=== PATIENT | male | born 1960 | race Caucasian/White ===

== ENCOUNTER → 2017-11-28 16:22 | Outpatient (CLI) | payer BC, SELFPAY ==
[2017-11-28 20:02] LABS: Chlamydia Trachomatis by PCR Negative (Negative); Neisserai gonorrhoeae by PCR Negative (Negative); Probe Check PASS; Sample Adequacy Control PASS; Specimen Processing Control PASS
[2017-11-29 10:59] LABS: HIV - WCH Non-Reactive (Nonreactive)
[2017-11-30 17:07] LABS: HEPATITIS B SURFACE AG Negative (Negative); Hep C Antibodies <0.1 s/co ratio (0.0-0.9)
[2017-12-01 04:35] LABS: Rapid Plasmin Reagin (RPR) NONREACTIVE (NONREACTIVE)
== END ==
PROVIDERS: Family Provider Family Medicine; PCP Family Medicine; Visit Provider Family Medicine
DX: Z20.9 Contact with and (suspected) exposure to unspecified communicable disease (principal)
CPT/HCPCS: 36415; 86592; 86703; 86803; 87340; 87491; 87591

== ENCOUNTER 2021-03-12 21:10 | Emergency (ER) | payer BC, SELFPAY ==
[2021-03-12 21:11] VITALS: BP 132/93; PULSE 86; RESP 19; TEMP 36.2; O2SAT 89; BMI 27.3
[2021-03-12 21:14] VITALS: O2SAT 96
--- NOTE | 2021-03-12 22:03 | EKG12_ITS ---
Test Reason : CP Blood Pressure : / mmHG Vent. Rate : 077 BPM Atrial Rate : 077 BPM P-R Int : 142 ms QRS Dur : 098 ms QT Int : 370 ms P-R-T Axes : 051 036 042 degrees QTc Int : 418 ms Normal sinus rhythm Normal ECG Confirmed by AMBAR FRANCISCO, MIRYAM ([id number]), assignment editor HALEY HARO ([id number]) on 03/15/2021 10:50:18 AM Referred By: Confirmed By:MIRYAM VILLALTA MD
--- NOTE | 2021-03-12 22:04 | ED.VIS.CHEST ---
HPI History of Present Illness Chief Complaint: Chest Pain Informant: patient and EMS Onset/Context/Timing Onset: Today Activity at onset: sudden (worsening [employer]) and gradual (earlier today) Timing: Continuous Quality: Positive for Aching and Sharp (now) Location: Right Chest (without radiation) Current Severity: Moderate Maximum Severity: Severe Worsened By: Breathing; Not Worsened By Exertion, Movement of Arm, Movement of Torso, Eating and Palpation Relieved By: Narcotics (fentanyl given by EMS, breathing w/ short tidal volumes) Associated Symptoms: Negative for Nausea, Vomiting, Diaphoresis, Dyspnea, Cough, Fever, Lightheadedness and Palpitations Narrative Narrative: Patient with pleuritic right-sided chest discomfort without radiation. States he felt like earlier today somebody punched him in his right lower ribs, and it was sore all day. Then while he was sitting on the couch at rest just prior to arrival, the pain suddenly became much worse without any obvious etiology. He denies any history of DVT or PE. Denies any association with food. No nausea, vomiting, diarrhea or other GI symptoms. No recent cough even in the past month. No history of Covid, he was vaccinated several months ago and fully so. He denies any leg pain or swelling, no recent travel, immobilization, travel, surgery. Prior Similar Symptoms: No Recent Illness/Hospitalization: No CVD Risk Factors: Negative for Hypertension, Diabetes, Hypercholesterolemia, Family History 1' </=55 and Smoking PE Risk Factors: Negative for Recent Travel/Surgery, Recent Immobilization, Prior DVT or PE, Cancer and OCP + Smoking + >/=35 [facility] Medical History Anxiety Home Medications citalopram 20 mg PO DAILY 05/08/13 [History Last Taken Unknown] apixaban [Eliquis] 5 mg PO BID #74 tab 03/13/21 [Rx Last Taken Unknown] Allergy/AdvReac Type Severity Reaction Status Date / Time No Known Allergies Allergy Verified 03/12/21 21:11 Social History Smoking Status: Never smoker ROS ROS ED Constitutional Constitutional ED: Denies chills or fever(s) Eyes Eyes: Denies change in vision or diplopia ENT ENT ED: Denies rhinorrhea or sore throat Cardiovascular Cardiovascular: Reports chest pain; Denies palpitations Respiratory/Chest Respiratory/Chest: Denies cough or dyspnea Gastrointestinal Gastrointestinal: Denies abdominal pain, diarrhea, nausea or vomiting Genitourinary Genitourinary ED: Denies dysuria or hematuria Musculoskeletal Musculoskeletal: Denies back pain or neck pain Integumentary Denies abscess or rash Neurologic Neurologic: Denies headache(s), paresthesias or weakness Psychiatric Psychiatric: Denies anxiety or suicidal thoughts EXAM Physical Exam Const Vital Signs: 03/12/21 21:11 03/12/21 21:14 03/12/21 21:16 Temperature 97.2 F L Temperature Source Temporal Pulse Rate 86 Respiratory Rate 19 H Respiratory Effort Normal Non-Labored Blood Pressure 132/93 H Blood Pressure Mean 106 Pulse Ox 89 96 Oxygen Delivery Method Room Air Nasal Cannula Oxygen Flow Rate (L/min) 03/12/21 22:06 03/12/21 23:19 Temperature Temperature Source Pulse Rate 89 Respiratory Rate 18 Respiratory Effort Blood Pressure 125/86 H Blood Pressure Mean 99 Pulse Ox 95 Oxygen Delivery Method Nasal Cannula Nasal Cannula Oxygen Flow Rate (L/min) 2 2 Positive well nourished and well developed General Appearance ED: well developed and NAD HEENT Reports moist mucous membranes normocephalic and atraumatic Eyes PERRL and EOMs intact bilaterally Neck full ROM and supple Chest Wall inspection of chest normal Chest: Negative for tenderness Resp normal respiratory effort and clear to auscultation bilaterally Cardio regular rate, regular rhythm and no murmurs Rate: Negative for tachycardic GI non-tender and non-distended Auscultation: normoactive bowel sounds Palpation: soft Back/Spine no CVA tenderness General Back: other FROM Extremity normal to inspection and no calf tenderness General Extremety ED: Negative for edema, pulses abnormal or tenderness General Extremity: Negative for edema or pulses abnormal Neuro oriented x3, CN's II-XII intact bilaterally and no sensory deficits noted Sensorium / Orientation: awake and alert Motor Exam: strength 5/5 throughout Skin no rashes or lesions noted and no wounds Heart Score History: Slightly/Non-Suspicious ECG: Normal Age: >45 - <65 years Risk Factors: No Risk Factors Troponin: </= Normal Limit Score: 1 MDM MDM MDM Narrative Medical decision making narrative: Main 2 items on the differential include pleurisy and pulmonary embolus although he has no risk factors for the latter, the story was concerning. D-dimer was elevated so CT angiography was performed and does show right lower lobe pulmonary emboli which is likely causing his symptoms. He does not have any signs of right heart strain, no tachycardia nor is he on any AV eloy blockers to suppress it, his troponin is negative and his EKG does show a borderline S1Q3T3 pattern but is otherwise unremarkable without any signs of ST segment deviation, ectopy, or tachycardia. The patient is feeling well and speaking full sentences. He is stable for outpatient treatment. He was given an injection of Lovenox since it is nighttime, and he can start Eliquis in the morning. We discussed follow-up and reasons to return. Lab Data Attestation: I reviewed the patient's lab results. Labs: Laboratory Results - last 24 hr 03/12/21 03/12/21 03/12/21 21:30 21:30 21:30 WBC 12.4 H RBC 4.55 L Hgb 13.8 Hct 40.6 MCV 89.2 MCH 30.3 MCHC 34.0 RDW Std Deviation 40.9 RDW Coeff of Digna 12.5 Plt Count 365 MPV 9.0 Immature Gran % (Auto) 0.600 Neut % (Auto) 65.7 Lymph % (Auto) 19.6 [place] % (Auto) 11.0 H Eos % (Auto) 2.8 Baso % (Auto) 0.3 Absolute Neuts (auto) 8.1 H Absolute Lymphs (auto) 2.43 Nucleated RBC % 0 D-Dimer Quant (PE/DVT) 1.20 H* Sodium 137 Potassium 3.5 Chloride 105 Carbon Dioxide 24.0 Anion Gap 8 BUN 14 Creatinine 0.78 Estim Creat Clear Calc 103.99 Est GFR (MDRD) Af Amer 130 Est GFR (MDRD) Non-Af 107 BUN/Creatinine Ratio 17.9 Glucose 107 H Calcium 8.7 Troponin I High Sens 6 Radiography Diagnostic Testing: Clinical Impression(s) from Imaging Studies Chest X-Ray 03/12/21 22:44 IMPRESSION: Degenerative changes, as described above. No demonstrated acute cardiopulmonary process. Electronically Signed: Jovani Fabian DO at 23:03 EDT Tel [phone], Service support , Chest CTA 03/12/21 22:51 IMPRESSION: 1. Bilateral lower lobe and right middle lobe segmental pulmonary emboli. 2. No evidence for right heart strain. 3. Bilateral multifocal pneumonia. N.B. : The above Results were Read Back by Chaya Taylor MD to Jerzy Hurtado MD, and understanding confirmed on 03/13/2021 00:02:31 (ET). Electronically Signed: Chaya Taylor MD at 0:11 EDT , Service support , ADDENDUM: 03/13/21 0018 IMPRESSION: 1. Bilateral lower lobe and right middle lobe segmental pulmonary emboli. 2. No evidence for right heart strain. 3. Bilateral multifocal pneumonia. N.B. : The above Results were Read Back by Chaya Taylor MD to Jerzy Hurtado MD, and understanding confirmed on 03/13/2021 00:02:31 (ET). Electronically Signed: Chaya Taylor MD at 0:11 EDT , Service support , EKG Initial EKG: Attestation: I personally reviewed and interpreted this EKG as follows: Interpretation: Sinus Rhythm (77) and No Acute Injury Pattern Comments: Normal EKG. S1Q3T3 pattern borderline (flattened T's in III, not inverted). Prior: No Prior Discharge Plan Triage Chief Complaint: Chest Pain ED Provider: Jerzy Hurtado Dx/Rx/DC Orders Clinical Impression: Pulmonary embolism on right Instructions: Embolism Pulmonary Dc Prescriptions: New Eliquis 5 MG tablet 5 mg PO BID Qty: 74 RF: 0 No Action citalopram 20 MG tablet 20 mg PO DAILY RF: 0 Primary Care Provider: Alfa Ceballos Referrals: Alfa Ceballos MD [Primary Care Provider] - 1-2 Weeks Disposition Disposition: Home, Self Care
[2021-03-12] MEDS: Ketorolac 15 MG/ML Vial IV (22:16)
[2021-03-12 22:18] LABS: Absolute Lymphocyte Count 2.43 X10^3/uL (0.83-4.51); Absolute Neutrophil Count 8.1 X10^3/uL (2.0-7.7); Basophil# 0.04 X10^3/uL; Basophil% 0.3 % (0-1); Eosinophil# 0.35 X10^3/uL; Eosinophils% 2.8 % (0-5); Hematocrit 40.6 % (40-54); Hemoglobin 13.8 g/dL (13.0-16.5); Lymphocyte # 2.43 X10^3/ul (0.83-4.51); Lymphocyte % 19.6 % (19-41); Mean Corpuscular Hgb 30.3 pg (27.0-32.0); Mean Corpuscular Volume 89.2 fL (80-94); Monocyte# 1.36 X10^3/uL; NRBC Flagged by Analyzer 0 % (0-5); Neutrophil # 8.13 X10^3/uL (2.7-7.7); Neutrophil % 65.7 % (47-70); Platelet Count 365 K/mm3 (150-450); RBC Distribution Width CV 12.5 % (11.6-14.6); RBC Distribution Width SD 40.9 fl (35.1-43.9); Red Blood Count 4.55 M/mm3 (4.6-6.2); White Blood Count 12.4 K/mm3 (4.4-11.0)
[2021-03-12 22:32] LABS: Anion Gap 8 (5-15); BUN 14 mg/dL (7-18); BUN/Creat Ratio 17.9 RATIO (10-20); Calcium,Total 8.7 mg/dL (8.5-10.1); Chloride 105 mmol/L (98-107); Creatinine, Serum 0.78 mg/dL (0.70-1.30); EST Glomerular Filtration Rate 107 mL/min (>60); Est Glom Filt Rate - Afr Amer 130 mL/min (>60); Estimated Creatinine Clearance 103.99 ml/min; Glucose 107 mg/dL (74-106); Potassium 3.5 mmol/L (3.5-5.1); Sodium Level 137 mmol/L (136-145); Troponin-I HS 6 pg/mL (3.0-78.0)
--- NOTE | 2021-03-12 22:44 | RAD_ITS ---
STUDY: X-RAY CHEST REASON FOR EXAM: Male, 60 years old. Right chest pain. TECHNIQUE: Single AP portable view of the chest. COMPARISON: None. FINDINGS: The lungs are clear and expanded. There is no demonstrated pleural abnormality. Normal size heart. Normal mediastinum and naresh. Normal visualized pulmonary arteries. Normal visualized aortic arch and descending thoracic aorta. There are diffuse degenerative changes of the visualized thoracic spine. Normal visualized ribs, clavicles, and shoulders. There is no demonstrated abnormality of the visualized soft tissue structures of the upper abdomen. RAD/Chest PA and Lateral IMPRESSION: Degenerative changes, as described above. No demonstrated acute cardiopulmonary process. Electronically Signed: Jovani Fabian DO at 23:03 EDT Tel [phone], Service support ,
--- NOTE | 2021-03-12 22:51 | CT_ITS ---
STUDY: CTA CHEST REASON FOR EXAM: Male, 60 years old. R chest pain, elevated d-dimer RADIATION DOSAGE (If Supplied By Facility): CTDIvol = ( 12.47 ) mGy, DLP = ( 438.80 ) mGycm TECHNIQUE: The examination was performed with the intravenous administration of 100 of mL Isovue-300. Post-processing of the angiographic images was performed, with multiplanar reformation and 3D reconstruction. Individualized dose optimization techniques were used for this CT. COMPARISON: None. FINDINGS: Normal enhancement of the main pulmonary artery and right and left pulmonary arteries. There is limited enhancement of the bilateral peripheral pulmonary arteries. There are segmental pulmonary emboli to the right middle lobe and right lower lobe. There are also probable segmental emboli to the left lower lobe. There is atherosclerotic tortuosity of the aortic arch and descending thoracic aorta. There is no demonstrated aortic dissection. Normal heart and pericardium. There are calcifications of the coronary arteries. Normal mediastinum. Normal hilar regions. Normal visualized trachea and bronchi. The lungs are well expanded. There is bilateral lower lobe airspace disease located primarily in the posterior segments of both lower lobes. There is also heterogeneous ground glass attenuation in the lingula. This suggests the possibility of multifocal pneumonia. Normal pleura. Normal chest wall structures. There are degenerative changes of thoracic spine. Normal visualized upper abdomen. CT/CTA Chest W/WO Contrast IMPRESSION: 1. Bilateral lower lobe and right middle lobe segmental pulmonary emboli. 2. No evidence for right heart strain. 3. Bilateral multifocal pneumonia. N.B. : The above Results were Read Back by Chaya Taylor MD to Jerzy Hurtado MD, and understanding confirmed on 03/13/2021 00:02:31 (ET). Electronically Signed: Chaya Taylor MD at 0:11 EDT , Service support ,
[2021-03-12 23:19] VITALS: BP 125/86; PULSE 89; RESP 18; O2SAT 95
[2021-03-13] MEDS: Enoxaparin 100 MG/ML Syringe 86 MG SC (00:53)
[2021-03-13 01:00] VITALS: RESP 16
== END 2021-03-13 01:00 | disposition home or self-care (01) ==
PROVIDERS: Emergency Provider Emergency Medicine; PCP Family Medicine
DX: I26.99 Other pulmonary embolism without acute cor pulmonale (principal); F41.9 Anxiety disorder, unspecified; Z79.899 Other long term (current) drug therapy
CPT/HCPCS: 71046; 71275; 80048; 84484; 85025; 85379; 93005; 96374; 96375; 99285; Q9967; A4216

== ENCOUNTER → 2021-03-17 15:01 | Outpatient (CLI) | payer BC, SELFPAY | PROVIDERS: PCP Family Medicine; Visit Provider Family Medicine | DX: Z20.828 Contact with and (suspected) exposure to other viral communicable diseases (principal); J18.9 Pneumonia, unspecified organism | CPT/HCPCS: 87635; U0005; U0003 ==

== ENCOUNTER → 2022-07-08 | Outpatient (CLI) | payer BC, SELFPAY ==
--- NOTE | 2022-07-08 13:54 | VDLE_ITS ---
Reason For Study: Pain RIGHT LEFT CFV is compressible, spontaneous, phasic, GSV is normal. competent and demonstrates normal CFV is compressible, spontaneous, phasic, augmentation. competent, and demonstrates normal Procedure augmentation. This is a venous duplex using B-mode, color FV is compressible, spontaneous, phasic, flow and spectral Doppler. competent and demonstrates normal Exam performed in department. augmentation. A preliminary report was called and/or faxed POP V is compressible, spontaneous, phasic, to [place]. competent and demonstrates normal augmentation. T/P Trunk is compressible. PTV is compressible. LT PerV is compressible. VL/Venous Duplex US, Unilateral Interpretation Summary Deep veins of the left lower extremity are patent and compressible segmentally. There is no evidence of left lower extremity deep vein thrombosis. The left great saphenous vein je ears patent and compressible segmentally. Ordering Physician: Wei Means Referring Physician: Wei Means Performed By: Amalia Mathews RVT
== END | disposition home or self-care (01) ==
LOC: CVS 13:53
PROVIDERS: PCP Nurse Practitioner Family; Visit Provider Nurse Practitioner Family
DX: M79.662 Pain in left lower leg (principal)
CPT/HCPCS: 93971

== ENCOUNTER → 2022-07-15 | Outpatient (CLI) | payer BC, SELFPAY ==
[2022-07-15 12:25] LABS: Absolute Lymphocyte Count 1.81 X10^3/uL (0.83-4.51); Absolute Neutrophil Count 4.2 X10^3/uL (2.0-7.7); Basophil# 0.03 X10^3/uL; Basophil% 0.4 % (0-1); Eosinophil# 0.19 X10^3/uL; Eosinophils% 2.7 % (0-5); Hematocrit 43.7 % (40-54); Hemoglobin 15.1 g/dL (13.0-16.5); Lymphocyte # 1.81 X10^3/ul (0.83-4.51); Lymphocyte % 25.7 % (19-41); Mean Corp Hgb Conc 34.6 g/dL (32-36); Mean Corpuscular Hgb 30.3 pg (27.0-32.0); Mean Corpuscular Volume 87.8 fL (80-94); Mean Platelet Vol. 9.7 fl (6.2-12.0); Monocyte# 0.78 X10^3/uL; Monocyte% 11.1 % (0-10); NRBC Flagged by Analyzer 0 % (0-5); Neutrophil # 4.21 X10^3/uL (2.7-7.7); Neutrophil % 59.7 % (47-70); Platelet Count 346 K/mm3 (150-450); RBC Distribution Width CV 12.5 % (11.6-14.6); RBC Distribution Width SD 40.3 fl (35.1-43.9); Red Blood Count 4.98 M/mm3 (4.6-6.2); White Blood Count 7.1 K/mm3 (4.4-11.0)
[2022-07-15 13:04] LABS: AST(SGOT) 32 U/L (15-37); Alanine Aminotransfer ALT/SGPT 55 U/L (16-61); Albumin, Serum 3.8 g/dL (3.2-5.0); Alkaline Phosphatase 98 U/L (45-117); Anion Gap 10 (5-15); BUN 18 mg/dL (7-18); BUN/Creat Ratio 20.9 RATIO (10-20); Chloride 102 mmol/L (98-107); Cholesterol 229 mg/dL (200); Creatinine, Serum 0.86 mg/dL (0.70-1.30); EST Glomerular Filtration Rate 96 mL/min (>60); Est Glom Filt Rate - Afr Amer 116 mL/min (>60); Globulin 3.8 g/dL (2.2-4.2); Glucose 104 mg/dL (74-106); High Density Lipoprotein 50 mg/dL; Potassium 4.1 mmol/L (3.5-5.1); Protein, Total 7.6 g/dL (6.4-8.2); Sodium Level 136 mmol/L (136-145); Thyroid Stim Hormone (TSH) 1.87 uIU/mL (0.358-3.74); Triglycerides 110 mg/dL; Very Low Density Lipoprotein 22 mg/dL (5-40)
== END | disposition home or self-care (01) ==
LOC: BIMLAB 08:12
PROVIDERS: PCP Nurse Practitioner Family; Referring Provider Nurse Practitioner Family; Visit Provider Nurse Practitioner Family
DX: I10 Essential (primary) hypertension (principal); E78.5 Hyperlipidemia, unspecified; R73.03 Prediabetes
CPT/HCPCS: 36415; 80053; 80061; 84443; 85025

== ENCOUNTER → 2022-08-11 | Outpatient (CLI) | payer BC, SELFPAY ==
--- NOTE | 2022-08-11 17:02 | RAD_ITS ---
INDICATION: CHRONIC NECK PAIN/crane EXAMINATION/TECHNIQUE: X-RAY - XR Spine Cervical 4 or 5 Views COMPARISON: None. FINDINGS: VERTEBRAE: Vertebral body height is maintained, there is mild degenerative retrolisthesis of C5 on C6. Marginal osteophyte formation is noted. No evidence of fracture or destructive bony process. Normal appearance of the odontoid process prevertebral soft tissue planes in alignment of the craniocervical junction. DISCS: Disc space narrowing most notable at C5-6 lesser extent C6-7. Retrolisthesis is noted at C5-6. Marginal osteophyte formation is present. Foraminal narrowing is noted at multiple levels contributed by facet and uncovertebral joint hypertrophic changes most notable on the RIGHT at C5-6 and C6-7. NECK SOFT TISSUES: No prevertebral soft tissue widening. LUNG APICES: Clear. RAD/Cerv Spine 4 or 5 Views IMPRESSION: 1. Degenerative retrolisthesis of C5 on C6. 2. No evidence of fracture, acute malalignment or destructive bony process. 3. Cervical spondylosis, disc space narrowing marginal osteophyte formation and multilevel foraminal narrowing contributed by facet and uncovertebral joint hypertrophic changes as detailed. Electronically Signed: Yung Santiago MD at 19:58 EDT ,
== END | disposition home or self-care (01) ==
LOC: MTRAD 17:02
PROVIDERS: PCP Nurse Practitioner Family; Referring Provider Nurse Practitioner Family; Visit Provider Nurse Practitioner Family
DX: G44.86 Cervicogenic headache (principal); M54.2 Cervicalgia
CPT/HCPCS: 72050

== ENCOUNTER → 2024-06-13 | Outpatient (CLI) | payer BC, SELFPAY ==
[2024-06-13 17:07] LABS: Absolute Neutrophil Count 5.1 X10^3/uL (2.0-7.7); Basophil# 0.04 X10^3/uL; Basophil% 0.4 % (0-1); Eosinophil# 0.38 X10^3/uL; Eosinophils% 4.1 % (0-5); Hematocrit 43.9 % (40-54); Hemoglobin 14.7 g/dL (13.0-16.5); Mean Corp Hgb Conc 33.5 g/dL (32-36); Mean Corpuscular Hgb 29.4 pg (27.0-32.0); Mean Corpuscular Volume 87.8 fL (80-94); Monocyte# 1.11 X10^3/uL; Monocyte% 11.9 % (0-10); NRBC Flagged by Analyzer 0 % (0-5); Neutrophil # 5.13 X10^3/uL (2.7-7.7); Neutrophil % 55.3 % (47-70); Platelet Count 383 K/mm3 (150-450); RBC Distribution Width CV 12.9 % (11.6-14.6); White Blood Count 9.3 K/mm3 (4.4-11.0)
[2024-06-13 17:21] LABS: Hemoglobin A1c 4.7 % (3.8-5.6)
[2024-06-13 17:33] LABS: ALB/GLOB Ratio 0.9 RATIO (0.9-2.4); AST(SGOT) 27 U/L (15-37); Alanine Aminotransfer ALT/SGPT 53 U/L (16-61); Albumin, Serum 3.9 g/dL (3.2-5.0); Alkaline Phosphatase 95 U/L (45-117); Anion Gap 7 (5-15); BUN 17 mg/dL (7-18); BUN/Creat Ratio 19.7 RATIO (10-20); Chloride 103 mmol/L (98-107); Cholesterol 232 mg/dL (200); Creatinine, Serum 0.86 mg/dL (0.70-1.30); EST Glomerular Filtration Rate 95 mL/min (>60); Est Glom Filt Rate - Afr Amer 115 mL/min (>60); Globulin 4.4 g/dL (2.2-4.2); Glucose 91 mg/dL (74-106); High Density Lipoprotein 53 mg/dL; Potassium 3.9 mmol/L (3.5-5.1); Protein, Total 8.3 g/dL (6.4-8.2); Sodium Level 136 mmol/L (136-145); Triglycerides 266 mg/dL; Very Low Density Lipoprotein 53 mg/dL (5-40)
== END | disposition home or self-care (01) ==
LOC: VSLAB 16:00
PROVIDERS: PCP Nurse Practitioner Family
DX: I10 Essential (primary) hypertension (principal); Z13.1 Encounter for screening for diabetes mellitus; Z13.220 Encounter for screening for lipoid disorders
CPT/HCPCS: 36415; 80053; 80061; 83036; 84443; 85025